=== PATIENT | male | born 1980 | race Caucasian/White ===

== ENCOUNTER 2020-01-12 11:28 | Emergency (ER) | payer OTHER, SELFPAY ==
--- NOTE | ~2020-01-12 | XR_ITS ---
EXAMINATION: XR chest 2V 01/12/2020 11:56 INDICATION: Chest pain. Alcohol withdrawals. PROCEDURE: 2 view chest COMPARISON: No prior studies for comparison. FINDINGS: The lungs are clear. The cardiomediastinal silhouette is within normal limits. There are no pleural effusions. There is no pneumothorax suspected. IMPRESSION: 1: NO ACUTE CARDIOPULMONARY DISEASE. Reviewed, dictated and finalized at location A.
--- NOTE | 2020-01-12 11:52 | ECG_ITS ---
Measurements Intervals [place] Rate: 125 P: 53 TX: 153 QRS: 64 QRSD: 93 T: 13 QT: 402 QTc: 580 Interpretive Statements SINUS TACHYCARDIA ABNORMAL ECG DELAYED PRECORDIAL R/S TRANSITION BORDERLINE ST-T WAVE ABNORMALITY- ANT/INF LEADS ABNORMAL ECG Electronically Signed On 01-12-2020 14:51:55 CDT by Erik Bello D.O.
== END 2020-01-12 11:33 | disposition left against medical advice (07) ==
LOC: ANHED 03-10 09:32
DX: Z53.21 Procedure and treatment not carried out due to patient leaving prior to being seen by health care provider (principal)
CPT/HCPCS: 99199; 71046; 93005